=== PATIENT | female | born 1985 | race Caucasian/White ===

== ENCOUNTER 2021-02-27 01:37 | Emergency (ER) | payer BC, OTHER ==
[~2021-02-27] VITALS: Ht 172.7 cm; Wt 56.7 kg
--- NOTE | 2021-02-27 01:50 | NUR ---
BIBS FOR C/O ON AND OFF PALPITATION FOR THE PAST YEAR. WORSE TODAY. PT REPORTED USING [facility] TODAY. DENIED CP, SOB, DIZZINESS OR N/V. AMBULATORY WITH STEADY GAITS. PT WAS PLACED ON [facility]. VSS. WILL CONT TO MONITOR,
[2021-02-27] MEDS ORDERED: ASPIRIN 81 MG TAB.CHEW PO ONE (02:00)
[2021-02-27] MEDS ORDERED: ASPIRIN 81 MG TAB.CHEW ONE (02:03)
[2021-02-27 02:19] LABS: BASOPHILS # (AUTO) 0.1 /CMM (0.0-0.2); EOSINOPHILS % (AUTO) 1.1 % (0.0-6.0); HEMATOCRIT 42 % (33-45); HEMOGLOBIN 13.9 g/dL (11.5-14.8); LYMPHOCYTES % (AUTO) 28.4 % (20.0-44.0); MEAN CORPUSCULAR HGB CONC 33 g/dl (31.0-36.0); MEAN CORPUSCULAR VOLUME 94 fL (82-100); MONOCYTES # (AUTO) 0.9 /CMM (0.1-1.30); MONOCYTES % (AUTO) 12.3 % (2.0-12.0); NEUTROPHILS % (AUTO) 57.2 % (43.0-81.0); PLATELET COUNT (AUTO) 240 /CMM (150-450); RED BLOOD CELL COUNT(AUTO) 4.44 MIL/uL (4.0-5.2)
--- NOTE | 2021-02-27 03:30 | NUR ---
DR PEREZ AT BED SIDE
[2021-02-27 04:03] LABS: POTASSIUM 4.2 mmol/L (3.5-5.1); SODIUM SERUM 141 mmol/L (136-145)
[2021-02-27 04:06] LABS: CARBON DIOXIDE 26 mmol/L (21-32); CHLORIDE 104 mmol/L (98-107)
[2021-02-27 04:07] LABS: ALKALINE PHOSPHATASE 41 U/L (46-116); ASPARTATE AMINOTRANSFERASE 11 U/L (15-37); BILIRUBIN,DIRECT 0.1 mg/dL (0.0-0.2); BILIRUBIN,TOTAL 0.2 mg/dL (0.2-1.0); CALCIUM, SERUM 9.4 mg/dL (8.5-10.1); CREATININE 0.9 mg/dL (0.6-1.3); GLUCOSE 147 mg/dL (74-106)
[2021-02-27 04:08] LABS: ALANINE AMINOTRANSFERASE 20 U/L (12-78); TOTAL PROTEIN, SERUM 7.5 g/dL (6.4-8.2)
[2021-02-27 04:09] LABS: B-TYPE NATRIURETIC PEPTIDE 53 PG/ML (0-125)
[2021-02-27] MEDS ORDERED: ALPR0.25 PO (04:17)
[2021-02-27 04:20] LABS: UREA NITROGEN, BLOOD 10 mg/dL (7-18)
--- NOTE | 2021-02-27 04:20 | NUR ---
dr vasquez at bed side
--- NOTE | 2021-02-27 04:28 | NUR ---
pt is medically stable for D/C. IV removed. Catheter intact and site benign. Pressure and 4x4 applied to site. No bleeding noted.Patient discharged to home in stable condition. Rx and Written and verbal after care instructions given. Patient verbalizes understanding of instruction.
[2021-02-27 04:29] VITALS: BP 101/58
== END 2021-02-27 04:29 | disposition home or self-care (01) ==
LOC: ER 01:39
DX: R00.2 Palpitations (principal); I49.3 Ventricular premature depolarization; F12.90 Cannabis use, unspecified, uncomplicated; Z88.6 Allergy status to analgesic agent; Z79.899 Other long term (current) drug therapy
CPT/HCPCS: 36415; 71045-TC; 80048-TC; 80076-TC; 83880; 84484-TC; 84703-TC; 85025-TC